=== PATIENT | female | born 1970 | race Caucasian/White ===

== ENCOUNTER 2017-01-25 20:42 | Emergency (ER) | payer OTHER ==
[~2017-01-25 20:42] MED LIST: ALBUTEROL17 G1 IH; AMITRYPTYLINE PO; ATARAX PO; BACLOFEN10 MG PO; BACTRIM DS TABL1 TAB PO; CIPRO PO; FLAGYL PO; FLEXERIL PO; FLEXERIL10 MG PO; IBUPROFEN PO; LIPITOR PO; LORTAB 7.5-5001 TAB PO; MEDROL PO; METHADONE PO; METHADONE10 MG/5 ML PO; MOBIC PO; MUCINEX DM1 TAB.SR . PO; NAPROSYN500 MG PO; NIQUIL; PHENERGAN PO; PHENERGAN SUPP25 MG PR; PHENERGAN W/CO120 ML PO; PHENERGAN25 MG PO; PREDNISONE PO; PROVERA10 MG PO; PYRIDIUM PO; REQUIP1 MG PO; SYMBICORT INH; VIBRAMYCIN100 M1 PO; VICODIN 5/1 TAB 5/50 PO; ZOLOFT PO
[2017-01-25 22:48] LABS: URINE SOURCE CLEAN CATCH
[2017-01-25 22:55] LABS: URINE APPEARANCE TURBID; URINE BLOOD 3+ (NEG); URINE GLUCOSE NEG (NEG); URINE KETONE NEG (NEG); URINE LEUKOCYTE ESTERASE 3+ (NEG); URINE NITRATE POS (NEG); URINE PROTEIN 2+ (NEG); URINE SPECIFIC GRAVITY 1.026 (1.003-1.035)
[2017-01-25 23:01] LABS: URBCS1 AUWI INNUM /[HPF] (0-2); URINE BACTERIA AUWI NEG (NEGATIVE); URINE SQUAMOUS EPITHELIAL CELL OCC /[HPF]; UWBCS1 AUWI INNUM (0-5)
[2017-01-25 23:03] LABS: URINE BILIRUBIN NEG (NEG)
[2017-01-25 23:04] LABS: URINE COLOR ORANGE
== END 2017-01-25 23:30 | disposition home or self-care (01) ==
LOC: CED 20:42
PROVIDERS: Emergency Medicine
DX: N30.01 Acute cystitis with hematuria (principal); J44.9 Chronic obstructive pulmonary disease, unspecified; F17.200 Nicotine dependence, unspecified, uncomplicated
CPT/HCPCS: 81003; 99283

== ENCOUNTER 2017-04-29 09:45 | Inpatient (IN) | payer OTHER ==
[~2017-04-29] VITALS: Ht 165.1 cm; Wt 91.8 kg
--- NOTE | ~2017-04-29 | OR ---
Unit #: [id number] #: [id number] Patient: BOBBY SONI [id number] [address] [address] [id number] I MR#: [id number] NAME: BOBBY SONI ROOM: 314 Date of Procedure: 04/30/2017 Admission Date: 04/29/2017 Surgeon: Dax Ruiz M.D. : 1970 Attending Physician: Corinna Zhao M.D. Primary Care Physician: Kartik Gaytan M.D. PROCEDURE OPERATIVE NOTE PROCEDURE Diagnostic bronchoscopy with bronchoalveolar wash and transbronchial biopsy under fluoroscopy guidance. INDICATION FOR PROCEDURE Abnormal CT chest. PREOP DIAGNOSES Pneumonia and hemoptysis. FINDING 1. Diffuse thick yellowish mucus secretion in the left main bronchus and left upper lobe. 2. Erythematous left upper lobe but no endobronchial mass. PREMEDICATION MAC sedation. COMPLICATION None. BLOOD LOSS Less than 25 mL. DESCRIPTION OF THE PROCEDURE An informed consent was obtained from the patient herself after explaining the benefits and risks of this procedure. Patient was prepped and positioned in a proper way, then her throat was premedicated with lidocaine then she was inducted with propofol with the assistance from Anesthesia. The bronchoscope was advanced through the oral cavity and at the level of vocal cord 2% lidocaine x6 mL was instilled and the bronchoscope was advanced through the vocal cord inside the trachea which appeared normal with no masses or excessive secretion. Then at the level of the miguel 1% lidocaine was instilled and the bronchoscope was advanced into the right main bronchus and the right upper lobe, right middle lobe, right lower lobe were examined which appeared normal with only minimum thick secretion that was aspirated. Then the bronchoscope was retracted and readvanced into the left main bronchus and the left upper lobe, left lower lobe and lingula appeared all slightly erythematous, mainly at the left upper lobe, with thick yellowish mucous plugs in the left main bronchus and the left upper lobe. Unit #: [id number] #: [id number] Patient: BOBBY SONI Bronchoalveolar lavage was obtained from the right upper lobe which will be sent for microbiology and cytology. Then under fluoroscopy guidance a transbronchial biopsy from the left upper lobe x8 were obtained with no complication. The bronchoscope was retracted out and patient tolerated her procedure well with no immediate complication. Dictated by... Haley Ramos TD: 04/30/2017 16:58 JOB #: [id number] PROCEDURE OPERATIVE NOTE Page 1 of 1 X DAX MULTANI MD X PROCEDURE OPERATIVE NOTE
--- NOTE | ~2017-04-29 | CT16 ---
[facility] A Service of [facility] & [facility] RADIOLOGY TEXT RESULTS PATIENT: BOBBY SONI LOCATION: [facility] 314-01 : [birth year] UNIT #: [id number] AGE: [address]: Corinna Zhao MD SEX: F ORDER DR: [id number] [facility] [address] [facility] [place], [place] [address] [id number] I MR#: [id number] Acc #: [id number] NAME: BOBBY SONI. : 1970 SEX: F STUDY DATE/TIME: 04/29/2017 12:12 UNIT: CEDOF ROOM: 73371 STUDY DESCRIPTION: CT Angio Chest for PE Attending Physician: Corinna Zhao M.D. Ordering Physician: Reinaldo Munguia M.D. Primary Care Physician: Kartik Gaytan M.D. MEDICAL IMAGING REPORT This report is preliminary unless electronic signature is present EXAM CT angiography chest for PE 04/29/2017 HISTORY Chest pain for 4 days. Worse today. FINDINGS [address] pulmonary angiography performed with intravenous administration of 80 mL Isovue-370. No comparison CT chest. There is a chest radiograph from earlier on the same date and there are images of the lower thorax from CT abdomen and pelvis dated 09/30/2015. This CT exam was performed with one or more of the following radiation dose reduction techniques: Automatic exposure control, adjustment of mA and/or kV according to patient size, and iterative reconstruction. Thyroid unremarkable. No axillary adenopathy. 9 mm short-axis left hilar node. There are other mildly enlarged left hilar nodes as well. Soft tissue thickening in the left hilum adjacent to the bronchovascular structures favored to represent xu tissue. 8-9 mm short-axis precarinal node. Heart jeptej-lw-lrpaj limits of normal in size. There may be trace left pleural fluid. There is no drainable fluid collection. The liver shows no suspicious focal abnormality. Gallbladder is unremarkable. Heterogeneous appearance of the spleen. Ill-defined rounded areas of hypodensity in the spleen. The appearance is nonspecific and could simply represent artifact related to contrast bolus timing versus imaging acquisition. Infiltrative infectious/inflammatory or neoplastic process not excluded and attention at followup is recommended. The pancreas is unremarkable. There is mild prominence of the extrahepatic common bile duct measuring up to about 9-10 mm in diameter. No change from prior CT. The adrenal glands and kidneys are unremarkable in visualized extent. No upper abdominal adenopathy. Lungs show emphysema. Calcified granuloma left lung base. Dependent atelectasis bilateral lung bases. Extensive, dense opacification in the upper half of [facility] A Service of [facility] RADIOLOGY TEXT RESULTS PATIENT: BOBBY SONI LOCATION: [facility] 314-01 : [birth year] UNIT #: [id number] AGE: [address]: Corinna Zhao MD SEX: F ORDER DR: the left lung. The area of abnormality measures approximately 10.6 cm x 5.8 cm x 6.7 cm. In much of this area, there is dense opacification with absence of air bronchograms. Along the posterior and superior margins of the dense airspace disease, there is patchier airspace disease with some patent airways. There are blood vessels coursing through this area of parenchymal density. Exact etiology is unclear. A severe consolidative pneumonia might be considered. I cannot exclude underlying neoplasm. There is an area in the mid portion of this overall abnormality measuring about 3 cm x 3.1 cm which demonstrates subtle hypodensity relative to the remainder of the opacified lung and diminished internal vascularity. There is a suggestion of some vascular splaying around this finding. This could represent an area of neoplasm within the overall abnormality, with the remainder of the dense airspace disease representing consolidative postobstructive pneumonia. Alternatively, this could represent an area of potentially evolving liquefaction/developing parenchymal abscess. The left lower lobe is clear. The pulmonary arteries are well opacified. No PE. No evidence of aortic aneurysm or dissection. The visualized aortic branch vessels are patent. Bony structures are unremarkable. IMPRESSION 1. Abnormal examination. See complete dictation above for full details. Dense opacification with mass-like characteristics in the upper half of the left upper lobe. Overall abnormality measures 10.6 cm x 5.8 cm x 6.7 cm. Along its posterior and superior periphery, there are areas of patchy airspace disease. The area of dense opacification does not show air bronchograms, though there are blood vessels coursing through it. Severe consolidative pneumonia could be considered. Alternatively, an occult central obstructing lesion with postobstructive pneumonia could be considered. Bronchoscopic assessment may be warranted. Close clinical and imaging followup with treatment for pneumonia, if patient is showing signs or symptoms of pneumonia, is strongly recommended to confirm resolution of these findings. 2. In the posterior mid portion of the overall left upper lobe abnormality, there is a subtle 3.1 cm x 3.3 cm area of relative hypodensity within which I do not see any significant vasculature. The appearance is nonspecific. In the appropriate context, this could represent an area of developing liquefaction/abscess. Alternatively, this could be neoplastic lesion causing the postobstructive pneumonia. Again, bronchoscopy may be useful for clarification. 3. Mildly enlarged mediastinal and left hilar lymph nodes, which are nonspecific in appearance. Attention at followup recommended. 4. Underlying emphysema. Dependent atelectasis lung bases. 5. No PE. 6. No evidence of aortic aneurysm or dissection. 7. Heterogeneous appearance of the spleen with multiple areas of relative hypodensity, some of which have a rounded configuration. The appearance is nonspecific and most likely represents artifact [facility] A Service of [facility] RADIOLOGY TEXT RESULTS PATIENT: BOBBY SONI LOCATION: A 314-01 : [birth year] UNIT #: [id number] AGE: [address]: Corinna Zhao MD SEX: F ORDER DR: related to timing of contrast bolus relative to imaging. Infiltrative infectious/inflammatory or neoplastic disease not excluded. Attention at followup recommended. 8. Mild prominence of the extrahepatic bile duct measuring 9-10 mm. No change from 2016. Dictated by... Wilbert Feng M.D. THIS IS AN ELECTRONICALLY VERIFIED REPORT Wilbert Feng M.D. at 04/30/2017 6:17 PM KADEN/loco TD: 04/29/2017 19:29 JOB #: [id number] MEDICAL IMAGING REPORT Page 1 of 1 COPY
--- NOTE | ~2017-04-29 | CO ---
Unit #: [id number] #: [id number] Patient: BOBBY SONI [id number] [address] [address] [id number] I MR#: [id number] NAME: BOBBY SONI. ROOM: 314 Age: 46 Sex: F Admission Date: 04/29/2017 : 1970 Attending Physician: Corinna Zhao M.D. Primary Care Physician: Kartik Gaytan M.D. Consultation Date: 04/29/2017 CONSULTATION REPORT REASON FOR CONSULTATION Hemoptysis and abnormal CT chest. CHIEF COMPLAINT Chest pain. HISTORY OF PRESENT ILLNESS This is a 46-year-old female with a past medical history significant for extensive smoking who presented to the emergency room with three days history of progressive left-sided chest pain associated with productive cough initially with yellowish sputum but today more as a hemoptysis. Patient felt more short-winded but she denied any fever, chills, or night sweats. She stated that her weight has been stable. Patient lives with her boyfriend and she is not on any oxygen. She smokes currently less than a pack per day. PAST MEDICAL HISTORY 1. Depression. 2. Anxiety. 3. Migraine. 4. Likely COPD. HOME MEDICATIONS 1. Flexeril. 2. Methadone. 3. Zoloft. ALLERGIES No known drug allergies. SOCIAL HISTORY The patient smokes less than a pack per day for the last 20 to 30 years. No history of alcohol or drug abuse. FAMILY HISTORY Cancer of unknown source. REVIEW OF SYSTEMS Twelve point review of system were obtained and were negative except for what was mentioned in the HPI. Unit #: [id number] #: [id number] Patient: BOBBY SONI PHYSICAL EXAMINATION GENERAL: The patient is in no acute distress. VITAL SIGNS: Blood pressure is 141/62, respiratory rate 20 with O2 saturation 98%. HEENT: Atraumatic and normocephalic. Extraocular muscles intact. NECK: Supple. No JVD. No lymphadenopathy. CHEST: Decreased breath sounds on the left side. No wheezing. HEART: S1, S2. No murmur, gallops or rubs. ABDOMEN: Soft, nontender. Bowel sounds positive. No hepatosplenomegaly. EXTREMITIES: No edema or cyanosis. SKIN: No rashes. AND RESCUE [employer]RE [employer]HTER CRASH FIRE: Awake, alert and oriented. Definitely no focal motor/sensor deficit. DIAGNOSTIC STUDIES LABORATORY RESULTS: Creatinine 0.7, calcium 9.1, white blood count 15.7, hemoglobin 10.8, platelet 293. IMAGING STUDIES: Noted and reviewed by me. ASSESSMENT 1. Hemoptysis. 2. Community acquired pneumonia. 3. Rule out lung malignancy. 4. Smoking. 5. COPD exacerbation. 6. Chronic anemia. 7. Smoking. 8. Anxiety. 9. Depression. PLAN 1. Patient will be admitted for pneumonia management, however, given her CT chest, malignancy cannot be ruled out. 2. Will continue patient on IV antibiotics, bronchodilator and mucolytics. 3. IV steroids and monitor blood sugar closely. 4. Bronchoscopy in the morning with transbronchial biopsy to rule out any underlying malignancy. 5. Will hold DVT prophylaxis. 6. Pain management. I would like to thank Dr. Zhao for allowing me to be part of this patient's care. Dictated by... Haley Stevenson TD: 04/30/2017 08:03 JOB #: [id number] Unit #: [id number] #: [id number] Patient: NAEBOBBY CONSULTATION REPORT Page 1 of 1 X X CONSULTATION REPORT
--- NOTE | ~2017-04-29 | HP ---
Unit #: [id number] #: [id number] Patient: BOBBY SONI [id number] [address] [address] [id number] I MR#: [id number] NAME: BOBBY SONI. ROOM: 314 Age: 46 Sex: F Admission Date: 04/29/2017 : 1970 Attending Physician: Corinna Zhao M.D. Primary Care Physician: Kartik Gaytan M.D. HISTORY AND PHYSICAL CHIEF COMPLAINT Chest pain. HISTORY OF PRESENTING ILLNESS A 46-year-old female who came with the complaint of chest pain. According to patient, this has been going on for the last three days of so which was gradually getting worse. She had not been feeling well since then. She has been having chills, but she did not know whether she had any temperature. She did complain of chest tightness and feeling fatigued, tired, and sick all over. She did not have any nausea or vomiting. Patient follows up with Dr. Kartik Gaytan. Since she has come to the ER, she has started to have blood in her sputum. She has been having sputum for the last three or four days. It is about yellowish in color. She did not have blood at home. PAST MEDICAL HISTORY 1. Back pain. 2. Depression. 3. GERD. PAST SURGICAL HISTORY None. HOME MEDICATIONS 1. Naproxen 500 mg twice daily. 2. Baclofen 10 mg 3 times daily. 3. Prozac 20 mg twice daily. 4. Prilosec 20 mg daily. SOCIAL HISTORY Patient is a smoker, smokes one-third pack per day. No history of alcohol abuse or drug abuse. ALLERGIES No known drug allergies. FAMILY HISTORY Not significant. REVIEW OF SYSTEMS As per History of Presenting Illness. No history of weight loss. No history of appetite loss. No history of syncopal episode or dizziness. No history of any skin problem. No history of leg swelling. The rest is as per History of Presenting Illness. Unit #: [id number] #: [id number] Patient: BOBBY SONI PHYSICAL EXAMINATION GENERAL: Patient is being evaluated in the ER, bed 15. VITAL SIGNS: Blood pressure is 132/68, respiratory rate 16, pulse is 88, temperature 99.6, oxygen saturation is 99%. HEENT: Head is normocephalic. Eye movements are normal. NECK: Supple. CHEST: Decreased air entry. Left-sided crackles are heard. CARDIOVASCULAR: S1 and S2 positive. Regular rhythm. Tachycardia. ABDOMEN: Soft. No tenderness. EXTREMITIES: Negative edema. CENTRAL NERVOUS SYSTEM: Patient is awake, alert, and oriented x3. No focal neurological deficit at this time. DIAGNOSTIC STUDIES LABORATORY: Troponin is less than 0.05. CBC shows WBC 15.7, hemoglobin 10.8, hematocrit 32.6, and platelet count of 293,000. BMP shows sodium 136, potassium 4.3, chloride 100, BUN 11, creatinine 0.7. Liver enzymes are stable. Urine drug screen was done which is positive for methadone and tricyclic antidepressants. IMAGING: Chest x-ray shows 7.3 x 7.2 cm area of airspace density in the left perihilar and suprahilar region extending into the left lung. This is new from December 2013. ASSESSMENT Patient is being admitted to telemetry unit with: 1. Pneumonia. 2. Hemoptysis. 3. Lung mass, rule out malignancy. 4. Tobacco abuse. 5. History of depression. 6. History of chronic pain. PLAN Admit to telemetry unit. Dr. Ruiz has been consulted. IV antibiotics are being started which are azithromycin and Rocephin. Nicotine patch 14 mg daily p.r.n. Mucinex 600 mg b.i.d. IV morphine 2 mg q.4 p.r.n. for pain. DuoNeb q.i.d. Patient is going to be scheduled for bronchoscopy in the morning. Please refer to progress note for further orders. Dictated by Haley Kruger TD: 04/29/2017 21:41 JOB #: [id number] Unit #: [id number] #: [id number] Patient: BOBBY SONI HISTORY AND PHYSICAL Page 1 of 1 X Corinna Zhao MD HISTORY AND PHYSICAL
--- NOTE | ~2017-04-29 | EKG ---
PATIENT: BOBBY SONI UNIT #: [id number] Ventricular Rate: 94 BPM Atrial Rate: 94 BPM P-R Interval: 118 ms QRS Duration: 82 ms Q-T Interval: 346 ms QTC Calculation(Bezet): 432 ms P [place]: 29 degrees Calculated R [place]: 60 degrees Calculated T [place]: 33 degrees Diagnosis Line: Normal sinus rhythm Diagnosis Line: Normal ECG Diagnosis Line: When compared with ECG of 13-JAN-2014 08:57, Diagnosis Line: No significant change was found Diagnosis Line: Confirmed by BRANDEE MERIDA MD ([id number]) on Diagnosis Line: 05/02/2017 10:46:25 AM INTERPRETING MD: FUAD PHELPS
--- NOTE | ~2017-04-29 | CR72 ---
[facility] A Service of [facility] & [facility] RADIOLOGY TEXT RESULTS PATIENT: BOBBY SONI LOCATION: [facility] [address]-02 : [birth year] UNIT #: [id number] AGE: [address]: Corinna Zhao MD SEX: F ORDER DR: [id number] [facility] [address] [place], [place] [address] [id number] I MR#: [id number] Acc #: [id number] NAME: BOBBY SONI. : 1970 SEX: F STUDY DATE/TIME: 04/29/2017 10:14 UNIT: CEDOF ROOM: 71909 STUDY DESCRIPTION: CR Chest Single View Portable Attending Physician: Corinna Zhao M.D. Ordering Physician: Reinaldo Munguia M.D. Primary Care Physician: Kartik Gaytan M.D. MEDICAL IMAGING REPORT This report is preliminary unless electronic signature is present EXAM Chest portable 04/29/2017 1014 hours HISTORY 46-year-old woman with 4-day history of left-sided chest pain. History of COPD and shortness of air. COMPARISON 01/14/2014 FINDINGS Single portable upright view demonstrates normal heart size. Aortic contours are normal. There is a slightly poorly defined parenchymal density extending from the left hilum superiorly into the left upper lung. This could represent acute pneumonia. It does have some mass-like qualities an underlying mass cannot be excluded. Lungs are otherwise clear of acute densities and there are no effusions. IMPRESSION 7.3 x 7.2 cm area of airspace density in the left perihilar and suprahilar region extending into the left upper lung is new from 01/14/2014. This could represent acute pneumonia, however an underlying mass cannot be excluded. Patient is scheduled for a PE protocol chest CT today which would evaluate this area. Correlation with that exam is recommended. There is no evidence of pleural effusion or pneumothorax. Dictated by... Stephanie Lora M.D. THIS IS AN ELECTRONICALLY VERIFIED REPORT Stephanie Lora M.D. at 04/29/2017 7:04 PM SMM/rnr [facility] A Service of [facility] & [facility] RADIOLOGY TEXT RESULTS PATIENT: BOBBY SONI LOCATION: [facility] [address]-08 : [birth year] UNIT #: [id number] AGE: [address]: Corinna Zhao MD SEX: F ORDER DR: TD: 04/29/2017 14:29 JOB #: [id number] MEDICAL IMAGING REPORT Page 1 of 1 COPY
--- NOTE | ~2017-04-29 | DS ---
Unit #: [id number] #: [id number] Patient: BOBBY SONI [id number] [address] [address] [id number] I MR#: [id number] NAME: BOBBY SONI. ROOM: 314 Age: 46 Sex: F Admission Date: 04/29/2017 : 1970 Discharge Date: 05/02/2017 Attending Physician: Corinna Zhao M.D. Primary Care Physician: Kartik Gaytan M.D. DISCHARGE SUMMARY FINAL DIAGNOSES 1. Pneumonia. 2. Acute exacerbation of chronic obstructive pulmonary disease. 3. Rule out malignancy. 4. Tobacco abuse. 5. Anemia. 6. History of depression. 7. History of chronic pain. CONSULTATION DURING HOSPITALIZATION Dr. Waqar Ruiz from Pulmonary Services. PROCEDURE PERFORMED DURING HOSPITALIZATION Diagnostic bronchoscopy with bronchoalveolar lavage and transbronchial biopsy under fluoroscopic guidance by Dr. Ruiz on 04/30/2017. This showed diffuse thick yellowish mucus secretion in the left main bronchus and left upper lobe. Edematous left upper lobe, but no endobronchial mass was seen. Please note, biopsy result is still pending. DIAGNOSTIC STUDIES LABORATORY RESULTS: Laboratory workup on discharge: CBC shows WBC 13.7, hemoglobin 9.5, hematocrit 30.1, and platelet count of 290. BMP shows sodium 140, potassium 4.8, chloride 107, BUN 16, creatinine 0.6, calcium 8.7. Cytology in the bronchioalveolar lavage is negative. Legionella is negative. Strep pneumoniae antigen in the urine is negative. Urine drug screen on admission was positive for methadone and TCA. IMAGING STUDIES: Significant imaging studies done during hospitalization: 1. Chest x-ray, which showed 7.3 x 7.2 cm area of airspace density in the left perihilar and suprahilar region. 2. CTA of the chest was done and that showed dense opacification with masslike characteristics in the upper half of the left upper lobe, 10.6 x 5.8 x 6.7 cm. Mildly enlarged mediastinal and left hilar lymph nodes, which are nonspecific in appearance. Underlying emphysema is seen. HOSPITAL COURSE Ms. Bobby Soni is a 46-year-old female, who was admitted on 04/29/2017 Unit #: [id number] #: [id number] Patient: BOBBY SONI with complain of shortness of breath, cough, and chest pain. The patient was admitted to telemetry unit. She was diagnosed with pneumonia and questionable lung mass. Bronchoscopy was done. It did not show any endobronchial lesion. The patient received IV antibiotics and is being converted to Augmentin at this time. The patient also received IV Solu-Medrol for COPD. She is doing much better and would like to go home. The patient is being discharged home, but we need to make sure that she has a repeat CT scan done in 4 weeks because we still concerned about malignancy. The patient will follow up with Dr. Ruiz/Dr. Colbert as an outpatient. Tobacco cessation counseling done at length. Plan of care has been discussed with the patient. She does verbalize understanding. DISCHARGE MEDICATIONS 1. Augmentin 875 one tablet p.o. b.i.d. until 05/14/2017. 2. Florastor one tablet p.o. daily. 3. Prednisone tapering dose. 4. Prozac 20 mg. 5. Lipitor 40 mg daily. DISCHARGE INSTRUCTIONS 1. The patient is being discharged home in stable condition. 2. Medication as per med rec. 3. Follow up with primary care provider in 1 week. 4. Follow up with Dr. Waqar Ruiz in 2 to [address] scan of the chest to be done in 4 weeks. 6. Tobacco cessation counseling done. 7. Follow up on bronch biopsy as an outpatient. 8. CBC and BMP to be done in 1 week. Dictated by... Haley Kruger/carlos TD: 05/05/2017 07:42 JOB #: [id number] DISCHARGE SUMMARY Page 1 of 1 X Corinna Zhao MD X DISCHARGE SUMMARY
--- NOTE | ~2017-04-29 | CR72 ---
[facility] A Service of [facility] & [facility] RADIOLOGY TEXT RESULTS PATIENT: BOBBY SONI LOCATION: [facility] 314-01 : [birth year] UNIT #: [id number] AGE: [address]: Corinna Zhao MD SEX: F ORDER DR: [id number] [facility] [address] [facility]. [place], [place] [address] [id number] I MR#: [id number] Acc #: [id number] NAME: BOBBY SONI. : 1970 SEX: F STUDY DATE/TIME: 04/30/2017 10:11 UNIT: [address] ROOM: [facility] STUDY DESCRIPTION: CR Chest Single View Portable Attending Physician: Corinna Zhao M.D. Ordering Physician: Erna Ruiz M.D. Primary Care Physician: Kartik Gaytan M.D. MEDICAL IMAGING REPORT This report is preliminary unless electronic signature is present EXAM Portable chest 04/30 INDICATIONS Cough and shortness of air today. Status post bronchoscopy. FINDINGS AP portable chest compared with 04/29/2017. There is continued dense left upper lobe consolidation with new consolidation in the left lower lobe. No pneumothorax is seen. Heart size within normal limits. There is some mild infiltrate or atelectasis at the right base. Dictated by... Eusebio Cohen Jr., M.D. THIS IS AN ELECTRONICALLY VERIFIED REPORT Eusebio Cohen Jr., M.D. at 05/01/2017 8:29 AM ALBIN/dave TD: 04/30/2017 18:42 JOB #: [id number] MEDICAL IMAGING REPORT Page 1 of 1 COPY
[2017-04-29 10:44] LABS: BASOPHIL% 0.3 % (0-2.5); EOSINOPHIL# 0.1 X10e3 (0-0.7); EOSINOPHIL% 0.8 % (0.0-7.0); HEMATOCRIT 32.6 % (35.0-45.0); HEMOGLOBIN 10.8 gm/dL (12.0-16.0); LYMPHOCYTE# 1.7 X10e3 (1.0-3.5); MEAN CELL VOLUME 81.8 FL (83-96); MEAN CORPUSCULAR HEMOGLOBIN 27.1 PG (28-34); MEAN CORPUSCULAR HGB CONC 33.2 g/dL (30-36); MEAN PLATELET VOLUME 7.2 FL (6.5-11.5); MONOCYTE# 1.8 X10e3 (0-1.0); MONOCYTE% 11.5 % (3.0-12.0); NEUTROPHIL% 76.4 % (40-75); PLATELET COUNT 293 X10e3 (140-420); RED BLOOD COUNT 3.99 X10e (3.90-5.30); WHITE BLOOD COUNT 15.7 X10e3 (4.0-10.5)
[2017-04-29 10:45] LABS: DIFF IND YES
[2017-04-29 10:52] LABS: POC - CKMB 1.3 ng/mL (0.0-7.9); POC - TROPONIN <0.05 ng/mL (<=0.05)
[2017-04-29 10:58] LABS: PARTIAL THROMBOPLASTIN TIME 26.1 SECONDS (23.5-31.3); PROTHROMBIN TIME (PATIENT) 11.2 SECONDS (10.0-11.7)
[2017-04-29 11:00] LABS: ANISOCYTOSIS SL; PLATELET ESTIMATE NORMAL (NORMAL)
[2017-04-29 11:07] LABS: ALBUMIN SERUM 3.4 g/dL (3.5-5.0); BILIRUBIN, DIRECT 0.2 mg/dL (0.0-0.2); BILIRUBIN,TOTAL 0.2 mg/dL (0.2-2.0); BUN/CREATININE RATIO 15.71; CALCIUM SERUM 9.1 mg/dL (8.4-10.2); CREATININE SERUM 0.7 mg/dL (0.6-1.4); GLOM FILT RATE Estimated 103.2 mL/min (>60); POTASSIUM 4.3 mmol/L (3.5-5.1); PROTEIN TOTAL SERUM 7.6 g/dL (6.0-8.3)
[2017-04-29 12:52] LABS: AMPHETAMINE NEG (NEG); BARBITURATES NEG (NEG); BENZODIAZEPINES NEG (NEG); COCAINE NEG (NEG); MARIJUANA NEG (NEG); OPIATES NEG (NEG); TRICYCLIC ANTIDEPRESSANTS POS (NEG); U METHADONE POS (NEG)
[2017-04-29] MEDS ORDERED: PATIENT'S PHARMACY (13:06)
[2017-04-29] MEDS ORDERED: NAPROSYN500 MG PO (13:06)
[2017-04-29 13:10] LABS: POC - CKMB 1.4 ng/mL (0.0-7.9); POC - TROPONIN <0.05 ng/mL (<=0.05)
[2017-04-29] MEDS ORDERED: PROZAC PO (13:24)
[2017-04-29] MEDS ORDERED: LIPITOR40 MG PO (13:24)
[2017-04-29] MEDS ORDERED: BACLOFEN10 MG PO (13:24)
[2017-04-29] MEDS ORDERED: PRILOSEC PO (13:24)
[2017-04-30 05:41] LABS: HEMATOCRIT 31.5 % (35.0-45.0); HEMOGLOBIN 10.2 gm/dL (12.0-16.0); MEAN CELL VOLUME 82.6 FL (83-96); MEAN CORPUSCULAR HEMOGLOBIN 26.7 PG (28-34); MEAN CORPUSCULAR HGB CONC 32.3 g/dL (30-36); MEAN PLATELET VOLUME 7.6 FL (6.5-11.5); RED BLOOD COUNT 3.81 X10e (3.90-5.30); WHITE BLOOD COUNT 16.4 X10e3 (4.0-10.5)
[2017-04-30 06:16] LABS: BUN/CREATININE RATIO 15.71; CALCIUM SERUM 8.5 mg/dL (8.4-10.2); CREATININE SERUM 0.7 mg/dL (0.6-1.4); GLOM FILT RATE Estimated 103.2 mL/min (>60)
[2017-04-30 12:04] LABS: BF TOTAL NUCLEATED CELL COUNT 1229 CMM (0-100); BODY FLUID APPEARANCE HAZY; BODY FLUID SOURCE BRONCHIAL LAVAGE
[2017-04-30 12:05] LABS: BODY FLUID RBC 16870 CMM
[2017-04-30 12:05] LABS: BF TOTAL NUCLEATED CELL COUNT 554 CMM (0-100); BODY FLUID APPEARANCE BLOODY; BODY FLUID RBC 213866 CMM
[2017-04-30 13:23] LABS: BODY FLUID SOURCE BRONCHIAL LAVAGE
[2017-05-01 05:44] LABS: HEMOGLOBIN 9.6 gm/dL (12.0-16.0); MEAN CELL VOLUME 82.7 FL (83-96); MEAN CORPUSCULAR HEMOGLOBIN 26.5 PG (28-34); MEAN CORPUSCULAR HGB CONC 32.1 g/dL (30-36); MEAN PLATELET VOLUME 7.9 FL (6.5-11.5); RED BLOOD COUNT 3.63 X10e (3.90-5.30); RED CELL DISTRIBUTION WIDTH 15.4 % (11.0-15.5); WHITE BLOOD COUNT 18.8 X10e3 (4.0-10.5)
[2017-05-01 06:07] LABS: BUN/CREATININE RATIO 31.66; CREATININE SERUM 0.6 mg/dL (0.6-1.4); GLOM FILT RATE Estimated 108.5 mL/min (>60); POTASSIUM 4.5 mmol/L (3.5-5.1)
[2017-05-02 04:11] LABS: HEMATOCRIT 30.1 % (35.0-45.0); HEMOGLOBIN 9.5 gm/dL (12.0-16.0); MEAN CELL VOLUME 82.5 FL (83-96); MEAN CORPUSCULAR HEMOGLOBIN 26.2 PG (28-34); MEAN CORPUSCULAR HGB CONC 31.7 g/dL (30-36); MEAN PLATELET VOLUME 7.4 FL (6.5-11.5); RED BLOOD COUNT 3.65 X10e (3.90-5.30); RED CELL DISTRIBUTION WIDTH 15.3 % (11.0-15.5); WHITE BLOOD COUNT 13.7 X10e3 (4.0-10.5)
[2017-05-02 04:34] LABS: BUN/CREATININE RATIO 26.66; CALCIUM SERUM 8.7 mg/dL (8.4-10.2); CREATININE SERUM 0.6 mg/dL (0.6-1.4); GLOM FILT RATE Estimated 108.5 mL/min (>60); POTASSIUM 4.8 mmol/L (3.5-5.1)
[2017-05-02] MEDS ORDERED: PREDNISONE PO (13:20)
[2017-05-02] MEDS ORDERED: AUGMENTIN PO (13:21)
[2017-05-02] MEDS ORDERED: [UNRECOGNIZED DRUG - OTHER] PO (13:23)
== END 2017-05-02 14:38 | disposition home or self-care (01) | DRG 166 ==
LOC: CED 09:45 → CEDOF 13:04 → CED 13:35 → C3A PCU 20:05
PROVIDERS: Emergency Medicine; Hospitalist; Internal Medicine Pulmonary Disease; Physician Assistant Medical
PROC: 0BC88ZZ Extirpation of Matter from Left Upper Lobe Bronchus, Via Natural or Artificial Opening Endoscopic (ICD-10-PCS; 2017-04-30)
PROC: 0B9C8ZX Drainage of Right Upper Lung Lobe, Via Natural or Artificial Opening Endoscopic, Diagnostic (ICD-10-PCS; principal; 2017-04-30 09:00)
PROC: 0BBG8ZX Excision of Left Upper Lung Lobe, Via Natural or Artificial Opening Endoscopic, Diagnostic (ICD-10-PCS; 2017-04-30 09:00)
PROC: 0BC78ZZ Extirpation of Matter from Left Main Bronchus, Via Natural or Artificial Opening Endoscopic (ICD-10-PCS; 2017-04-30 09:00)
DX: J44.0 Chronic obstructive pulmonary disease with (acute) lower respiratory infection (principal); J18.9 Pneumonia, unspecified organism; R04.2 Hemoptysis; J44.1 Chronic obstructive pulmonary disease with (acute) exacerbation; K21.9 Gastro-esophageal reflux disease without esophagitis; F17.200 Nicotine dependence, unspecified, uncomplicated; D64.9 Anemia, unspecified; G89.29 Other chronic pain; F32.9 Major depressive disorder, single episode, unspecified
CPT/HCPCS: 36415; 71010; 71275; 76000; 80048; 80076; 80307; 82553; 84484; 84703; 85025; 85027; 85610; 85730; 87070; 87102; 87116; 87205; 87206; 87252; 87254; 87278; 87449; 87899; 88108; 88305; 88312; 89051; 93005; 94640; 94760; 96374; 99285; J0171; J0456; J0696; J1650; J1885; J2250; J2270; J2920; J2930; Q9967